=== PATIENT | male | born 1950 | race Hispanic/Latino ===

== ENCOUNTER 2017-08-29 13:59 | Outpatient (RCR) | payer OTHER | END 2017-08-31 | LOC: PT 13:59 | PROVIDERS: ATTEND Specialist | DX: M17.0 Bilateral primary osteoarthritis of knee (principal); M25.562 Pain in left knee; M25.561 Pain in right knee; R26.2 Difficulty in walking, not elsewhere classified | CPT/HCPCS: 97110 ×5; 97163; G8978; G8979 ==

== ENCOUNTER → 2018-09-25 | Outpatient (CLI) | payer OTHER ==
--- NOTE | 2018-09-25 18:23 | Diagnostic Imaging Report ---
EXAMINATION: Left Hip 2 views CLINICAL HISTORY:Left hip pain COMPARISON: KUB DISCUSSION: Exam limited by soft tissue attenuation from body habitus. The bones are well-mineralized. No acute, displaced fractures or dislocations. Mild degenerative changes in the left hip joint, similar to prior KUB. No gross soft tissue abnormalities. No osteolytic or osteoblastic lesions. IMPRESSION: 1. No acute abnormalities. 2. Mild degenerative changes in the left hip joint, similar to prior exam dated 02/11/2017 Signed by: Dr. Bebo Hernandez M.D. on 09/25/2018 6:20 PM
== END ==
LOC: RAD 16:50
PROVIDERS: ATTEND Family Medicine
DX: M25.552 Pain in left hip (principal)

== ENCOUNTER → 2019-08-20 | Outpatient (CLI) | payer MEDICARE ==
--- NOTE | 2019-08-20 14:26 | Diagnostic Imaging Report ---
EXAMINATION: CHEST 2 VIEWS INDICATION: Shortness of breath COMPARISON: None FINDINGS: LINES/TUBES:None LUNGS:The lungs are moderately inflated. Left basilar subsegmental atelectasis. No focal consolidation or pulmonary edema. PLEURA:No pleural effusion or pneumothorax. MEDIASTINUM:The cardiomediastinal silhouette appears normal in size and shape. BONES/SOFT TISSUES:No acute osseous injury. ABDOMEN:No free air under the diaphragm. IMPRESSION: Left basilar subsegmental atelectasis. No focal pneumonia or pulmonary edema. Signed by: Mercedes Mendoza MD on 08/20/2019 2:23 PM
== END ==
LOC: RAD 13:10
PROVIDERS: ATTEND Family Medicine
DX: I50.9 Heart failure, unspecified (principal)
CPT/HCPCS: 71046

== ENCOUNTER → 2020-11-06 | Outpatient (CLI) | payer MEDICARE | LOC: RAD 11:58 | PROVIDERS: ATTEND Internal Medicine Critical Care Medicine | DX: R06.00 Dyspnea, unspecified (principal) | CPT/HCPCS: 71046 ==

== ENCOUNTER 2021-07-11 11:11 | Inpatient (IN) | payer MEDICARE, OTHER ==
[~2021-07-11] VITALS: Ht 177.8 cm; Wt 165.1 kg
[2021-07-11 11:34] LABS: BASOPHILS % 0.2 % (0.0-1.0); EOSINOPHILS # (AUTO) 0.2 (0.0-0.4); EOSINOPHILS % 1.2 % (0.0-6.0); HEMATOCRIT 32.9 % (38.2-49.6); HEMOGLOBIN 9.4 g/dL (14.0-18.0); LYMPHOCYTES # (AUTO) 0.7 (1.0-3.2); LYMPHOCYTES % 5.6 % (18.0-39.1); MEAN CORPUSCULAR HEMOGLOBIN 28.1 pg (28-32); MEAN CORPUSCULAR HGB CONC 28.6 g/dL (31-35); MEAN CORPUSCULAR VOLUME 98.5 fL (81-99); MONOCYTES # (AUTO) 0.8 (0.2-0.8); MONOCYTES % 5.8 % (4.4-11.3); NEUTROPHILS # (AUTO) 11.2 (2.1-6.9); NEUTROPHILS % 86.1 % (38.7-80.0); PLATELET COUNT 253 x10e3/uL (140-360); RED BLOOD COUNT 3.34 x10e6/uL (4.3-5.7); RED CELL DISTRIBUTION WIDTH 13.3 % (11.7-14.4)
[2021-07-11 11:49] LABS: ANION GAP 17.4 mmol/L (8-16); CALCIUM 9.5 mg/dL (8.4-10.2); CREATININE, SERUM 3.29 mg/dL (0.72-1.25); POTASSIUM 5.4 mmol/L (3.5-5.1)
[2021-07-11 12:03] LABS: CLARITY,URINE SL CLOUDY (CLEAR); COLOR,URINE YELLOW (YELLOW)
[2021-07-11 12:04] LABS: KETONES,URINE TRACE (NEGATIVE); LEUKOCYTE ESTERASE ,URINE SMALL (NEGATIVE); NITRITE,URINE NEGATIVE (NEGATIVE); PROTEIN,URINE DIPSTICK >=300 (NEGATIVE)
[2021-07-11 12:05] LABS: BACTERIA,URINE RARE /HPF; EPITHELIAL CELLS,URINE FEW /LPF
[2021-07-11] MEDS ORDERED: SODIUM CHLORIDE 0.9% 1000ML 1,000 ML IV SCH (12:15)
[2021-07-11] MEDS: SODIUM CHLORIDE 0.9% 1000ML 1,000 ML IV SCH (13:55)
[2021-07-11 16:45] VITALS: BP 116/45
[2021-07-11] MEDS: CEFTRIAXONE 1 GM in SODIUM CHLORIDE 0.9% 50ML 50 ML IV SCH (17:00)
[2021-07-11] MEDS ORDERED: DEXAMETHASONE SOD PHOS 10 MG/1 ML VIAL IV SCH (17:00)
[2021-07-11 17:11] VITALS: BP_SYST 116; BP_SYST 52; BP_DIAS 42; BP_DIAS 45
[2021-07-11] MEDS ORDERED: LOSARTAN POTAS100 MG PO (17:40)
[2021-07-11] MEDS ORDERED: SPIRONOLACTONE25 MG PO (17:44)
[2021-07-11] MEDS ORDERED: ASPIRIN81 MG PO (17:44)
[2021-07-11] MEDS ORDERED: FUROSEMIDE40 MG PO (17:44)
[2021-07-11] MEDS ORDERED: FLOMAX0.4 MG PO (17:44)
[2021-07-11] MEDS ORDERED: SIMVASTATIN20 MG PO (17:44)
[2021-07-11] MEDS ORDERED: PANTOPRAZOLE SO40 MG PO (17:44)
[2021-07-11] MEDS ORDERED: HYDRALAZINE HCL25 MG PO (17:44)
[2021-07-11] MEDS ORDERED: CEFTRIAXONE 1 GM VIAL ONE (18:12)
[2021-07-11] MEDS ORDERED: SODIUM CHLORIDE 0.9% 250ML 250 ML ONE (18:12)
[2021-07-11] MEDS ORDERED: SODIUM CHLORIDE 0.9% 50ML 50 ML ONE (18:17)
[2021-07-11] MEDS ORDERED: METFORMIN HCL500 MG PO (18:29)
[2021-07-11] MEDS ORDERED: HUMULIN 70100 UNIT/1 SC (18:29)
[2021-07-11 18:46] VITALS: BP 116/45
[2021-07-11 20:00] VITALS: BP_SYST 108; BP_SYST 121; BP_DIAS 45; BP_DIAS 70
[2021-07-11 21:00] VITALS: BP 121/45
[2021-07-11] MEDS: INSULIN LISPRO 100 UNIT/1 ML 3ML VIAL SQ SCH (21:00)
[2021-07-11] MEDS: ENOXAPARIN 30 MG/0.3 ML SYR SC SCH (21:31)
[2021-07-12] VITALS (9 sets, daily range): BP systolic 100–148; BP diastolic 42–69
[2021-07-12 06:23] LABS: BASOPHILS % 0.2 % (0.0-1.0); HEMATOCRIT 31.1 % (38.2-49.6); LYMPHOCYTES # (AUTO) 0.6 (1.0-3.2); LYMPHOCYTES % 5.2 % (18.0-39.1); MEAN CORPUSCULAR HEMOGLOBIN 27.7 pg (28-32); MEAN CORPUSCULAR HGB CONC 28.9 g/dL (31-35); MEAN CORPUSCULAR VOLUME 95.7 fL (81-99); MONOCYTES # (AUTO) 0.3 (0.2-0.8); MONOCYTES % 2.4 % (4.4-11.3); NEUTROPHILS # (AUTO) 9.6 (2.1-6.9); NEUTROPHILS % 89.3 % (38.7-80.0); PLATELET COUNT 258 x10e3/uL (140-360); RED BLOOD COUNT 3.25 x10e6/uL (4.3-5.7); RED CELL DISTRIBUTION WIDTH 13.4 % (11.7-14.4)
[2021-07-12 06:53] LABS: ANION GAP 20.5 mmol/L (8-16); CREATININE, SERUM 4.24 mg/dL (0.72-1.25); POTASSIUM 5.5 mmol/L (3.5-5.1)
[2021-07-12 07:25] LABS: ALBUMIN 2.4 g/dL (3.5-5.0); BILIRUBIN,DIRECT 2.7 mg/dL (0.0-0.5)
[2021-07-12] MEDS: INSULIN LISPRO 100 UNIT/1 ML 3ML VIAL SQ SCH ×4 (07:30→21:17)
[2021-07-12] MEDS ORDERED: SOD POLYSTYRENE SULFONATE SUSP 15 GM/60 ML BTL PO ONE (07:45)
[2021-07-12] MEDS ORDERED: CEFTRIAXONE 1 GM VIAL ONE (08:14)
[2021-07-12] MEDS ORDERED: SODIUM CHLORIDE 0.9% 50ML 50 ML ONE (08:19)
[2021-07-12] MEDS: ENOXAPARIN 30 MG/0.3 ML SYR SC SCH ×2 (08:47→20:56)
[2021-07-12 11:14] LABS: ABG PH 7.22 (7.35-7.45)
[2021-07-12 11:15] LABS: ABG HCO3 32 mmol/L (22-26); ABG PCO2 77 mmHg (35-45); ABG PO2 74 mmHg (80-105); ABG TCO2 34
[2021-07-12] MEDS ORDERED: FUROSEMIDE INJ 10 MG/ML 4 ML VIAL IV NR (11:45)
[2021-07-12] MEDS: SODIUM CHLORIDE 0.9% 1000ML 1,000 ML IV SCH ×2 (11:58→21:33)
[2021-07-12] MEDS: IPRATROPIUM/ALBUTEROL SULFATE 4 GM INH INH SCH ×2 (13:00→14:40)
[2021-07-12] MEDS: CEFTRIAXONE 1 GM in SODIUM CHLORIDE 0.9% 50ML 50 ML IV SCH (18:01)
[2021-07-13] VITALS (11 sets, daily range): BP systolic 105–139; BP diastolic 46–82
[2021-07-13 05:48] LABS: BASOPHILS # (AUTO) 0.1 (0.0-0.1); BASOPHILS % 0.4 % (0.0-1.0); HEMATOCRIT 29.7 % (38.2-49.6); HEMOGLOBIN 8.9 g/dL (14.0-18.0); LYMPHOCYTES # (AUTO) 0.8 (1.0-3.2); LYMPHOCYTES % 6.4 % (18.0-39.1); MEAN CORPUSCULAR HEMOGLOBIN 28.2 pg (28-32); MONOCYTES # (AUTO) 0.6 (0.2-0.8); MONOCYTES % 4.6 % (4.4-11.3); NEUTROPHILS # (AUTO) 10.3 (2.1-6.9); NEUTROPHILS % 84.5 % (38.7-80.0); PLATELET COUNT 270 x10e3/uL (140-360); RED BLOOD COUNT 3.16 x10e6/uL (4.3-5.7); RED CELL DISTRIBUTION WIDTH 13.6 % (11.7-14.4)
[2021-07-13 06:17] LABS: INR 1.05; PROTHROMBIN TIME 14.5 seconds (11.9-14.5)
[2021-07-13 06:33] LABS: ALBUMIN 2.4 g/dL (3.5-5.0); ALBUMIN/GLOBULIN RATIO 0.5 (0.8-2.0); ANION GAP 21.8 mmol/L (8-16); CALCIUM 8.3 mg/dL (8.4-10.2); CREATININE, SERUM 5.33 mg/dL (0.72-1.25); POTASSIUM 5.8 mmol/L (3.5-5.1)
[2021-07-13] MEDS: INSULIN LISPRO 100 UNIT/1 ML 3ML VIAL SQ SCH ×4 (07:30→21:00)
[2021-07-13] MEDS ORDERED: DEXTROSE 50% SYRINGE 50 ML IV STA (08:04)
[2021-07-13] MEDS ORDERED: INSULIN REGULAR, HUMAN 100 UNIT/1 ML IV ONE (08:30)
[2021-07-13] MEDS ORDERED: CALCIUM GLUCONATE 10% INJ 4.65 MEQ in SODIUM CHLORIDE 0.9% 50ML 50 ML IV ONE (08:30)
[2021-07-13] MEDS ORDERED: DEXTROSE 50% SYRINGE 50 ML IV ONE (08:35)
[2021-07-13] MEDS: ENOXAPARIN 30 MG/0.3 ML SYR SC SCH (09:00)
[2021-07-13] MEDS: DEXAMETHASONE 4 MG TAB PO SCH (09:14)
[2021-07-13] MEDS: ASPIRIN 81 MG CHEW TAB PO SCH (09:17)
[2021-07-13] MEDS: TAMSULOSIN HCL 0.4 MG CAP PO SCH (09:17)
[2021-07-13] MEDS: PANTOPRAZOLE SOD 40 MG TABEC PO SCH (09:17)
[2021-07-13 09:29] LABS: ABG PH 7.21 (7.35-7.45)
[2021-07-13 09:30] LABS: ABG HCO3 32 mmol/L (22-26); ABG PCO2 77 mmHg (35-45); ABG TCO2 34
[2021-07-13 09:31] LABS: ABG PO2 74 mmHg (80-105)
[2021-07-13] MEDS ORDERED: LIDOCAINE HCL 1% LOCAL INJ 20 ML VIAL ONE (13:11)
[2021-07-13] MEDS ORDERED: HEPARIN SOD (PORCINE) 1000 UNIT/ML SDV ONE (13:52)
[2021-07-13] MEDS ORDERED: SODIUM CHLORIDE 0.9% 250ML 500 ML IV PRN (14:15)
[2021-07-13] MEDS ORDERED: SODIUM CHLORIDE 0.9% 1000ML 2,000 ML IV PRN (14:15)
[2021-07-13] MEDS ORDERED: ALBUMIN 25% 12.5GM 0.25 GM/ML BTL IV PRN (14:15)
[2021-07-13] MEDS ORDERED: MANNITOL 25% 12.5GM/50 ML VIAL IV PRN (14:15)
[2021-07-13] MEDS ORDERED: HEPARIN SOD (PORCINE) 1000 UNIT/ML SDV IV PRN (14:15)
[2021-07-13] MEDS ORDERED: CEFEPIME 1 GM in SODIUM CHLORIDE 0.9% 50ML 50 ML IV SCH (16:00)
[2021-07-13] MEDS: PIPERACILLIN/TAZOBACTAM 3.375 GM in SODIUM CHLORIDE 0.9% 50ML 50 ML IV SCH (21:00)
[2021-07-14] VITALS (10 sets, daily range): BP systolic 105–132; BP diastolic 47–70
[2021-07-14 05:46] LABS: BASOPHILS % 0.2 % (0.0-1.0); HEMATOCRIT 28.8 % (38.2-49.6); HEMOGLOBIN 8.9 g/dL (14.0-18.0); LYMPHOCYTES # (AUTO) 0.7 (1.0-3.2); LYMPHOCYTES % 5.9 % (18.0-39.1); MEAN CORPUSCULAR HEMOGLOBIN 27.9 pg (28-32); MEAN CORPUSCULAR HGB CONC 30.9 g/dL (31-35); MEAN CORPUSCULAR VOLUME 90.3 fL (81-99); MONOCYTES # (AUTO) 0.8 (0.2-0.8); MONOCYTES % 6.6 % (4.4-11.3); NEUTROPHILS # (AUTO) 10.2 (2.1-6.9); NEUTROPHILS % 82.3 % (38.7-80.0); PLATELET COUNT 286 x10e3/uL (140-360); RED BLOOD COUNT 3.19 x10e6/uL (4.3-5.7); RED CELL DISTRIBUTION WIDTH 13.6 % (11.7-14.4)
[2021-07-14 06:03] LABS: INR 1.06; PROTHROMBIN TIME 14.6 seconds (11.9-14.5)
[2021-07-14 06:27] LABS: ALBUMIN 2.6 g/dL (3.5-5.0); ALBUMIN/GLOBULIN RATIO 0.6 (0.8-2.0); ANION GAP 17.7 mmol/L (8-16); CREATININE, SERUM 5.52 mg/dL (0.72-1.25); POTASSIUM 5.7 mmol/L (3.5-5.1)
[2021-07-14] MEDS: IPRATROPIUM/ALBUTEROL SULFATE 4 GM INH INH SCH ×3 (07:00→19:50)
[2021-07-14] MEDS: INSULIN LISPRO 100 UNIT/1 ML 3ML VIAL SQ SCH ×4 (07:30→21:00)
[2021-07-14] MEDS: PANTOPRAZOLE SOD 40 MG TABEC PO SCH (09:30)
[2021-07-14] MEDS: ENOXAPARIN 30 MG/0.3 ML SYR SC SCH (09:30)
[2021-07-14] MEDS: PIPERACILLIN/TAZOBACTAM 3.375 GM in SODIUM CHLORIDE 0.9% 50ML 50 ML IV SCH ×2 (09:30→21:47)
[2021-07-14] MEDS: ASPIRIN 81 MG CHEW TAB PO SCH (09:30)
[2021-07-14] MEDS: DEXAMETHASONE 4 MG TAB PO SCH (09:30)
[2021-07-14] MEDS: TAMSULOSIN HCL 0.4 MG CAP PO SCH (09:30)
[2021-07-14] MEDS ORDERED: HEPARIN SOD (PORCINE) 1000 UNIT/ML SDV IV PRN (10:45)
[2021-07-14 18:40] LABS: TOTAL PROTEIN 24HR, URINE 76.7 mg/24hr (50-100); TOTAL PROTEIN, URINE 383.8 mg/dL (1-14)
[2021-07-14] MEDS: HEPARIN SOD (PORCINE) 5,000 UNIT/ML VIAL SC SCH (22:00)
[2021-07-15] VITALS (8 sets, daily range): BP systolic 91–138; BP diastolic 36–78
[2021-07-15] MEDS: IPRATROPIUM/ALBUTEROL SULFATE 4 GM INH INH SCH ×3 (02:00→13:00)
[2021-07-15] MEDS: HEPARIN SOD (PORCINE) 5,000 UNIT/ML VIAL SC SCH ×3 (06:15→22:30)
[2021-07-15 06:34] LABS: BASOPHILS # (AUTO) 0.1 (0.0-0.1); BASOPHILS % 0.4 % (0.0-1.0); HEMATOCRIT 28.1 % (38.2-49.6); HEMOGLOBIN 8.5 g/dL (14.0-18.0); LYMPHOCYTES # (AUTO) 1.2 (1.0-3.2); LYMPHOCYTES % 8.5 % (18.0-39.1); MEAN CORPUSCULAR HGB CONC 30.2 g/dL (31-35); MEAN CORPUSCULAR VOLUME 92.4 fL (81-99); MONOCYTES # (AUTO) 1.1 (0.2-0.8); MONOCYTES % 7.6 % (4.4-11.3); NEUTROPHILS # (AUTO) 10.8 (2.1-6.9); NEUTROPHILS % 76.4 % (38.7-80.0); PLATELET COUNT 268 x10e3/uL (140-360); RED BLOOD COUNT 3.04 x10e6/uL (4.3-5.7); RED CELL DISTRIBUTION WIDTH 13.9 % (11.7-14.4)
[2021-07-15 06:45] LABS: ALBUMIN 2.6 g/dL (3.5-5.0); ALBUMIN/GLOBULIN RATIO 0.6 (0.8-2.0); CREATININE, SERUM 4.85 mg/dL (0.72-1.25)
[2021-07-15] MEDS: INSULIN LISPRO 100 UNIT/1 ML 3ML VIAL SQ SCH ×4 (07:30→22:29)
[2021-07-15] MEDS ORDERED: HEPARIN SOD (PORCINE) 1000 UNIT/ML SDV IV PRN (08:00)
[2021-07-15 09:06] LABS: LYMPHOCYTES % (MANUAL) 11 % (19-48); MONOCYTES % (MANUAL) 4 % (3.4-9.0); MYELOCYTES % (MANUAL) 4 % (0-0); NEUTROPHILS % (MANUAL) 81 % (40-74); PLATELET ESTIMATE ADEQUATE; PLATELET MORPHOLOGY COMMENT NORMAL; RBC MORPHOLOGY COMMENT NORMAL
[2021-07-15] MEDS: PANTOPRAZOLE SOD 40 MG TABEC PO SCH (10:24)
[2021-07-15] MEDS: TAMSULOSIN HCL 0.4 MG CAP PO SCH (10:24)
[2021-07-15] MEDS: ASPIRIN 81 MG CHEW TAB PO SCH (10:24)
[2021-07-15] MEDS: DEXAMETHASONE 4 MG TAB PO SCH (10:24)
[2021-07-15] MEDS ORDERED: SODIUM CHLORIDE 0.9% 100 ML ONE (11:31)
[2021-07-15] MEDS: PIPERACILLIN/TAZOBACTAM 3.375 GM in SODIUM CHLORIDE 0.9% 50ML 50 ML IV SCH ×2 (12:19→22:28)
[2021-07-16] VITALS (9 sets, daily range): BP systolic 109–141; BP diastolic 42–73
[2021-07-16] MEDS: IPRATROPIUM/ALBUTEROL SULFATE 4 GM INH INH SCH ×7 (00:40→18:46)
[2021-07-16] MEDS: HEPARIN SOD (PORCINE) 5,000 UNIT/ML VIAL SC SCH ×3 (05:30→21:25)
[2021-07-16] MEDS: INSULIN LISPRO 100 UNIT/1 ML 3ML VIAL SQ SCH ×4 (07:30→21:24)
[2021-07-16] MEDS: PANTOPRAZOLE SOD 40 MG TABEC PO SCH (08:30)
[2021-07-16] MEDS: DEXAMETHASONE 4 MG TAB PO SCH (08:30)
[2021-07-16 08:47] LABS: BASOPHILS # (AUTO) 0.1 (0.0-0.1); BASOPHILS % 0.3 % (0.0-1.0); EOSINOPHILS % 0.1 % (0.0-6.0); HEMATOCRIT 27.2 % (38.2-49.6); HEMOGLOBIN 8.4 g/dL (14.0-18.0); LYMPHOCYTES # (AUTO) 1.6 (1.0-3.2); LYMPHOCYTES % 9.6 % (18.0-39.1); MEAN CORPUSCULAR HEMOGLOBIN 28.3 pg (28-32); MEAN CORPUSCULAR HGB CONC 30.9 g/dL (31-35); MEAN CORPUSCULAR VOLUME 91.6 fL (81-99); MONOCYTES # (AUTO) 1.5 (0.2-0.8); MONOCYTES % 9.2 % (4.4-11.3); NEUTROPHILS # (AUTO) 12.2 (2.1-6.9); NEUTROPHILS % 72.6 % (38.7-80.0); PLATELET COUNT 230 x10e3/uL (140-360); RED BLOOD COUNT 2.97 x10e6/uL (4.3-5.7); RED CELL DISTRIBUTION WIDTH 13.7 % (11.7-14.4)
[2021-07-16] MEDS: PIPERACILLIN/TAZOBACTAM 3.375 GM in SODIUM CHLORIDE 0.9% 50ML 50 ML IV SCH ×2 (09:56→21:23)
[2021-07-16] MEDS: TAMSULOSIN HCL 0.4 MG CAP PO SCH (09:56)
[2021-07-16] MEDS: ASPIRIN 81 MG CHEW TAB PO SCH (09:56)
[2021-07-16] MEDS ORDERED: SALINE 0.65% NAS SOLN 1 SPRAY BTL PRN (16:00)
[2021-07-16] MEDS: AZITHROMYCIN 250 MG TAB PO SCH (17:56)
[2021-07-17] VITALS (8 sets, daily range): BP systolic 96–128; BP diastolic 37–81
[2021-07-17 07:08] LABS: ALBUMIN 2.5 g/dL (3.5-5.0); ALBUMIN/GLOBULIN RATIO 0.6 (0.8-2.0); ANION GAP 15.7 mmol/L (8-16); CALCIUM 7.9 mg/dL (8.4-10.2); CREATININE, SERUM 5.3 mg/dL (0.72-1.25); POTASSIUM 4.7 mmol/L (3.5-5.1)
[2021-07-17] MEDS: INSULIN LISPRO 100 UNIT/1 ML 3ML VIAL SQ SCH ×4 (07:30→21:28)
[2021-07-17] MEDS ORDERED: SODIUM CHLORIDE 0.9% 1000ML 1,000 ML ONE (07:38)
[2021-07-17] MEDS: TAMSULOSIN HCL 0.4 MG CAP PO SCH (09:17)
[2021-07-17] MEDS: PANTOPRAZOLE SOD 40 MG TABEC PO SCH (09:17)
[2021-07-17] MEDS: DEXAMETHASONE 4 MG TAB PO SCH (09:17)
[2021-07-17] MEDS: PIPERACILLIN/TAZOBACTAM 3.375 GM in SODIUM CHLORIDE 0.9% 50ML 50 ML IV SCH ×2 (12:33→21:27)
[2021-07-17] MEDS: SERTRALINE HCL 50 MG TAB PO SCH (12:33)
[2021-07-17] MEDS: IPRATROPIUM/ALBUTEROL SULFATE 4 GM INH INH SCH ×3 (12:58→20:30)
[2021-07-17] MEDS ORDERED: HEPARIN SOD (PORCINE) 1000 UNIT/ML SDV ONE (14:18)
[2021-07-17] MEDS ORDERED: MIDAZOLAM HCL 2 MG/2 ML VIAL ONE (14:18)
[2021-07-17] MEDS ORDERED: FENTANYL CITRATE/PF 100MCG/2 ML INJ ONE (14:18)
[2021-07-17] MEDS ORDERED: SODIUM CHLORIDE 0.9% 250ML 250 ML ONE (14:29)
[2021-07-17] MEDS ORDERED: LIDOCAINE HCL 1% LOCAL INJ 20 ML VIAL ONE (14:29)
[2021-07-17] MEDS: HEPARIN SOD (PORCINE) 5,000 UNIT/ML VIAL SC SCH ×2 (16:44→21:28)
[2021-07-17] MEDS: AZITHROMYCIN 250 MG TAB PO SCH (16:59)
[2021-07-17] MEDS: ASPIRIN 81 MG CHEW TAB PO SCH (16:59)
[2021-07-18] VITALS (7 sets, daily range): BP systolic 100–127; BP diastolic 32–48
[2021-07-18] MEDS: HEPARIN SOD (PORCINE) 5,000 UNIT/ML VIAL SC SCH ×3 (05:43→21:22)
[2021-07-18 06:50] LABS: BASOPHILS # (AUTO) 0.1 (0.0-0.1); BASOPHILS % 0.4 % (0.0-1.0); EOSINOPHILS % 0.1 % (0.0-6.0); LYMPHOCYTES # (AUTO) 1.3 (1.0-3.2); LYMPHOCYTES % 7.9 % (18.0-39.1); MEAN CORPUSCULAR HEMOGLOBIN 27.7 pg (28-32); MEAN CORPUSCULAR HGB CONC 29.6 g/dL (31-35); MEAN CORPUSCULAR VOLUME 93.4 fL (81-99); MONOCYTES # (AUTO) 1.1 (0.2-0.8); MONOCYTES % 6.3 % (4.4-11.3); NEUTROPHILS # (AUTO) 12.9 (2.1-6.9); NEUTROPHILS % 77.7 % (38.7-80.0); PLATELET COUNT 204 x10e3/uL (140-360); RED BLOOD COUNT 2.89 x10e6/uL (4.3-5.7); RED CELL DISTRIBUTION WIDTH 13.6 % (11.7-14.4)
[2021-07-18] MEDS: IPRATROPIUM/ALBUTEROL SULFATE 4 GM INH INH SCH ×2 (08:12→19:25)
[2021-07-18] MEDS: INSULIN LISPRO 100 UNIT/1 ML 3ML VIAL SQ SCH ×4 (08:40→21:40)
[2021-07-18] MEDS: SERTRALINE HCL 50 MG TAB PO SCH (10:00)
[2021-07-18] MEDS: PIPERACILLIN/TAZOBACTAM 3.375 GM in SODIUM CHLORIDE 0.9% 50ML 50 ML IV SCH ×2 (10:00→21:21)
[2021-07-18] MEDS: DEXAMETHASONE 4 MG TAB PO SCH (10:00)
[2021-07-18] MEDS: PANTOPRAZOLE SOD 40 MG TABEC PO SCH (10:00)
[2021-07-18] MEDS: TAMSULOSIN HCL 0.4 MG CAP PO SCH (10:00)
[2021-07-18] MEDS: ASPIRIN 81 MG CHEW TAB PO SCH (10:00)
[2021-07-18 11:55] LABS: LYMPHOCYTES % (MANUAL) 12 % (19-48); MONOCYTES % (MANUAL) 5 % (3.4-9.0); NEUTROPHILS % (MANUAL) 83 % (40-74); PLATELET ESTIMATE ADEQUATE; PLATELET MORPHOLOGY COMMENT NORMAL; RBC MORPHOLOGY COMMENT NORMAL
[2021-07-18] MEDS: AZITHROMYCIN 250 MG TAB PO SCH (17:00)
[2021-07-18 21:11] LABS: CREATINE KINASE MB 1.2 ng/mL (0-5.0)
[2021-07-19] MEDS: IPRATROPIUM/ALBUTEROL SULFATE 4 GM INH INH SCH ×4 (01:00→19:00)
[2021-07-19] MEDS: HEPARIN SOD (PORCINE) 5,000 UNIT/ML VIAL SC SCH ×2 (05:41→13:36)
[2021-07-19 06:44] VITALS: BP 104/37
[2021-07-19 07:53] VITALS: BP 110/42
[2021-07-19 08:08] LABS: BASOPHILS # (AUTO) 0.1 (0.0-0.1); BASOPHILS % 0.3 % (0.0-1.0); EOSINOPHILS % 0.1 % (0.0-6.0); HEMATOCRIT 26.5 % (38.2-49.6); HEMOGLOBIN 8.2 g/dL (14.0-18.0); LYMPHOCYTES # (AUTO) 1.1 (1.0-3.2); LYMPHOCYTES % 5.7 % (18.0-39.1); MEAN CORPUSCULAR HEMOGLOBIN 27.9 pg (28-32); MEAN CORPUSCULAR HGB CONC 30.9 g/dL (31-35); MEAN CORPUSCULAR VOLUME 90.1 fL (81-99); MONOCYTES # (AUTO) 0.8 (0.2-0.8); NEUTROPHILS # (AUTO) 15.7 (2.1-6.9); NEUTROPHILS % 82.1 % (38.7-80.0); PLATELET COUNT 234 x10e3/uL (140-360); RED BLOOD COUNT 2.94 x10e6/uL (4.3-5.7); RED CELL DISTRIBUTION WIDTH 13.9 % (11.7-14.4)
[2021-07-19] MEDS: INSULIN LISPRO 100 UNIT/1 ML 3ML VIAL SQ SCH ×4 (08:30→21:40)
[2021-07-19 08:31] LABS: ALBUMIN 2.4 g/dL (3.5-5.0); ALBUMIN/GLOBULIN RATIO 0.5 (0.8-2.0); ANION GAP 15.9 mmol/L (8-16); CALCIUM 8.3 mg/dL (8.4-10.2); CREATININE, SERUM 5.52 mg/dL (0.72-1.25); POTASSIUM 4.9 mmol/L (3.5-5.1)
[2021-07-19 09:37] LABS: EOSINOPHILS % (MANUAL) 2 % (0-7); HYPOCHROMASIA MARKED; LYMPHOCYTES % (MANUAL) 11 % (19-48); MONOCYTES % (MANUAL) 5 % (3.4-9.0); MYELOCYTES % (MANUAL) 4 % (0-0); NEUTROPHILS % (MANUAL) 76 % (40-74); PLATELET ESTIMATE ADEQUATE; PLATELET MORPHOLOGY COMMENT FEW LARGE; RBC MORPHOLOGY COMMENT ABNORMAL
[2021-07-19] MEDS: ASPIRIN 81 MG CHEW TAB PO SCH (10:30)
[2021-07-19] MEDS: SERTRALINE HCL 50 MG TAB PO SCH (10:30)
[2021-07-19] MEDS: DEXAMETHASONE 4 MG TAB PO SCH (10:30)
[2021-07-19] MEDS: TAMSULOSIN HCL 0.4 MG CAP PO SCH (10:30)
[2021-07-19] MEDS: PANTOPRAZOLE SOD 40 MG TABEC PO SCH (10:30)
[2021-07-19] MEDS: PIPERACILLIN/TAZOBACTAM 3.375 GM in SODIUM CHLORIDE 0.9% 50ML 50 ML IV SCH (10:30)
[2021-07-19 11:56] VITALS: BP 99/37
[2021-07-19] MEDS ORDERED: ALBUMIN 25% 12.5GM 0.25 GM/ML BTL IV ONE (12:45)
[2021-07-19] MEDS ORDERED: SODIUM CHLORIDE 0.9% 250ML 250 ML ONE (13:36)
[2021-07-19 13:46] LABS: ABG HCO3 27 mmol/L (22-26); ABG PCO2 74 mmHg (35-45); ABG PH 7.19 (7.35-7.45); ABG PO2 134 mmHg (80-105)
[2021-07-19 13:47] LABS: ABG TCO2 29
[2021-07-19 15:54] VITALS: BP 100/47
[2021-07-19] MEDS: AZITHROMYCIN 250 MG TAB PO SCH (18:00)
[2021-07-19 21:09] VITALS: BP 139/45
[2021-07-19] MEDS: MEROPENEM 500 MG in SODIUM CHLORIDE 0.9% 50ML 50 ML IV SCH (21:39)
[2021-07-19 21:43] VITALS: BP 139/47
[2021-07-20] VITALS (9 sets, daily range): BP systolic 94–136; BP diastolic 41–69
[2021-07-20] MEDS: IPRATROPIUM/ALBUTEROL SULFATE 4 GM INH INH SCH ×5 (01:00→19:20)
[2021-07-20 05:19] LABS: BASOPHILS # (AUTO) 0.1 (0.0-0.1); BASOPHILS % 0.4 % (0.0-1.0); HEMATOCRIT 25.2 % (38.2-49.6); LYMPHOCYTES # (AUTO) 1.2 (1.0-3.2); LYMPHOCYTES % 5.7 % (18.0-39.1); MEAN CORPUSCULAR HEMOGLOBIN 27.9 pg (28-32); MEAN CORPUSCULAR HGB CONC 31.7 g/dL (31-35); MEAN CORPUSCULAR VOLUME 87.8 fL (81-99); MONOCYTES # (AUTO) 0.9 (0.2-0.8); MONOCYTES % 4.1 % (4.4-11.3); NEUTROPHILS # (AUTO) 17.3 (2.1-6.9); NEUTROPHILS % 81.5 % (38.7-80.0); PLATELET COUNT 270 x10e3/uL (140-360); RED BLOOD COUNT 2.87 x10e6/uL (4.3-5.7); RED CELL DISTRIBUTION WIDTH 13.9 % (11.7-14.4)
[2021-07-20 05:35] LABS: ALBUMIN 2.7 g/dL (3.5-5.0); ALBUMIN/GLOBULIN RATIO 0.6 (0.8-2.0); CALCIUM 8.3 mg/dL (8.4-10.2); CREATININE, SERUM 6.54 mg/dL (0.72-1.25)
[2021-07-20] MEDS: PANTOPRAZOLE SOD 40 MG TABEC PO SCH (07:30)
[2021-07-20] MEDS: INSULIN LISPRO 100 UNIT/1 ML 3ML VIAL SQ SCH ×4 (07:30→21:00)
[2021-07-20] MEDS: ASPIRIN 81 MG CHEW TAB PO SCH (07:36)
[2021-07-20] MEDS: TAMSULOSIN HCL 0.4 MG CAP PO SCH (07:37)
[2021-07-20] MEDS: SERTRALINE HCL 50 MG TAB PO SCH (07:37)
[2021-07-20] MEDS: MEROPENEM 500 MG in SODIUM CHLORIDE 0.9% 50ML 50 ML IV SCH ×2 (08:00→20:00)
[2021-07-20 08:27] LABS: BAND NEUTROPHILS % (MANUAL) 1 %; LYMPHOCYTES % (MANUAL) 11 % (19-48); METAMYELOCYTES % (MANUAL) 1 % (0-0); MONOCYTES % (MANUAL) 9 % (3.4-9.0); NEUTROPHILS % (MANUAL) 78 % (40-74); PLATELET ESTIMATE ADEQUATE; PLATELET MORPHOLOGY COMMENT NORMAL; RBC MORPHOLOGY COMMENT NORMAL
[2021-07-20] MEDS ORDERED: LIDOCAINE HCL 1% LOCAL INJ 20 ML VIAL ONE (13:25)
[2021-07-20] MEDS ORDERED: FENTANYL CITRATE/PF 100MCG/2 ML INJ ONE (14:21)
[2021-07-20] MEDS ORDERED: Morphine 4mg Syringe 4 MG/ML INJ IV ONE (15:30)
[2021-07-21] VITALS (12 sets, daily range): BP systolic 111–145; BP diastolic 40–98
[2021-07-21] MEDS: IPRATROPIUM/ALBUTEROL SULFATE 4 GM INH INH SCH ×5 (01:20→13:55)
[2021-07-21 05:03] LABS: BASOPHILS % 0.2 % (0.0-1.0); EOSINOPHILS % 0.1 % (0.0-6.0); HEMATOCRIT 23.6 % (38.2-49.6); HEMOGLOBIN 7.6 g/dL (14.0-18.0); LYMPHOCYTES # (AUTO) 1.3 (1.0-3.2); LYMPHOCYTES % 6.8 % (18.0-39.1); MEAN CORPUSCULAR HEMOGLOBIN 27.8 pg (28-32); MEAN CORPUSCULAR HGB CONC 32.2 g/dL (31-35); MEAN CORPUSCULAR VOLUME 86.4 fL (81-99); MONOCYTES # (AUTO) 1.3 (0.2-0.8); MONOCYTES % 6.5 % (4.4-11.3); NEUTROPHILS # (AUTO) 15.5 (2.1-6.9); NEUTROPHILS % 80.3 % (38.7-80.0); PLATELET COUNT 295 x10e3/uL (140-360); RED BLOOD COUNT 2.73 x10e6/uL (4.3-5.7); RED CELL DISTRIBUTION WIDTH 14.4 % (11.7-14.4)
[2021-07-21] MEDS: HYDROCODONE/APAP 7.5MG-325MG 1 EA TAB PO PRN ×5 (05:18→22:05)
[2021-07-21 05:45] LABS: ALBUMIN 2.9 g/dL (3.5-5.0); ALBUMIN/GLOBULIN RATIO 0.7 (0.8-2.0); ANION GAP 19.7 mmol/L (8-16); CALCIUM 8.3 mg/dL (8.4-10.2); CREATININE, SERUM 4.57 mg/dL (0.72-1.25); POTASSIUM 4.7 mmol/L (3.5-5.1)
[2021-07-21] MEDS: PANTOPRAZOLE SOD 40 MG TABEC PO SCH (07:10)
[2021-07-21] MEDS: INSULIN LISPRO 100 UNIT/1 ML 3ML VIAL SQ SCH ×4 (07:10→21:00)
[2021-07-21] MEDS: SERTRALINE HCL 50 MG TAB PO SCH (07:11)
[2021-07-21] MEDS: ASPIRIN 81 MG CHEW TAB PO SCH (07:11)
[2021-07-21] MEDS: TAMSULOSIN HCL 0.4 MG CAP PO SCH (07:11)
[2021-07-21] MEDS: MEROPENEM 500 MG in SODIUM CHLORIDE 0.9% 50ML 50 ML IV SCH ×2 (07:51→20:36)
[2021-07-22] VITALS (7 sets, daily range): BP systolic 103–146; BP diastolic 44–59
[2021-07-22] MEDS: IPRATROPIUM/ALBUTEROL SULFATE 4 GM INH INH SCH ×4 (04:11→19:11)
[2021-07-22 07:28] LABS: BASOPHILS # (AUTO) 0.1 (0.0-0.1); BASOPHILS % 0.3 % (0.0-1.0); EOSINOPHILS % 0.1 % (0.0-6.0); HEMATOCRIT 24.9 % (38.2-49.6); HEMOGLOBIN 7.4 g/dL (14.0-18.0); LYMPHOCYTES # (AUTO) 2.2 (1.0-3.2); LYMPHOCYTES % 9.2 % (18.0-39.1); MEAN CORPUSCULAR HEMOGLOBIN 27.5 pg (28-32); MEAN CORPUSCULAR HGB CONC 29.7 g/dL (31-35); MEAN CORPUSCULAR VOLUME 92.6 fL (81-99); MONOCYTES % 8.3 % (4.4-11.3); NEUTROPHILS # (AUTO) 18.5 (2.1-6.9); PLATELET COUNT 322 x10e3/uL (140-360); RED BLOOD COUNT 2.69 x10e6/uL (4.3-5.7); RED CELL DISTRIBUTION WIDTH 14.9 % (11.7-14.4)
[2021-07-22] MEDS: INSULIN LISPRO 100 UNIT/1 ML 3ML VIAL SQ SCH ×4 (07:30→20:23)
[2021-07-22] MEDS: PANTOPRAZOLE SOD 40 MG TABEC PO SCH (07:30)
[2021-07-22 07:53] LABS: ALBUMIN 2.9 g/dL (3.5-5.0); ALBUMIN/GLOBULIN RATIO 0.7 (0.8-2.0); CALCIUM 8.4 mg/dL (8.4-10.2); CREATININE, SERUM 6.01 mg/dL (0.72-1.25)
[2021-07-22] MEDS: MEROPENEM 500 MG in SODIUM CHLORIDE 0.9% 50ML 50 ML IV SCH ×2 (09:27→20:35)
[2021-07-22] MEDS: ASPIRIN 81 MG CHEW TAB PO SCH (09:27)
[2021-07-22] MEDS: TAMSULOSIN HCL 0.4 MG CAP PO SCH (09:27)
[2021-07-22] MEDS: SERTRALINE HCL 50 MG TAB PO SCH (09:27)
[2021-07-22] MEDS ORDERED: DEXTROSE 50% SYRINGE 50 ML IV PRN (13:45)
[2021-07-22] MEDS ORDERED: HEPARIN SOD (PORCINE) 1000 UNIT/ML SDV ONE (13:50)
[2021-07-22] MEDS ORDERED: HEPARIN SOD (PORCINE) 1000 UNIT/ML SDV IV PRN (14:00)
[2021-07-22] MEDS ORDERED: HEPARIN SOD (PORCINE) 1000 UNIT/ML 10ML MDV IM SCH (14:00)
[2021-07-22] MEDS: HYDROCODONE/APAP 7.5MG-325MG 1 EA TAB PO PRN (20:35)
[2021-07-22] MEDS: HEPARIN SOD (PORCINE) 5,000 UNIT/ML VIAL SC SCH (22:55)
[2021-07-23] VITALS (9 sets, daily range): BP systolic 107–126; BP diastolic 40–58
[2021-07-23] MEDS: IPRATROPIUM/ALBUTEROL SULFATE 4 GM INH INH SCH ×4 (01:07→19:05)
[2021-07-23] MEDS: HEPARIN SOD (PORCINE) 5,000 UNIT/ML VIAL SC SCH ×3 (06:50→22:38)
[2021-07-23] MEDS: INSULIN LISPRO 100 UNIT/1 ML 3ML VIAL SQ SCH ×4 (07:30→21:00)
[2021-07-23] MEDS: PANTOPRAZOLE SOD 40 MG TABEC PO SCH (07:30)
[2021-07-23] MEDS: TAMSULOSIN HCL 0.4 MG CAP PO SCH (09:34)
[2021-07-23] MEDS: ASPIRIN 81 MG CHEW TAB PO SCH (09:34)
[2021-07-23] MEDS: SERTRALINE HCL 50 MG TAB PO SCH (09:34)
[2021-07-23] MEDS: MEROPENEM 500 MG in SODIUM CHLORIDE 0.9% 50ML 50 ML IV SCH ×2 (09:44→22:39)
[2021-07-23] MEDS ORDERED: SODIUM CHLORIDE 0.9% 250ML 250 ML IV ONE (12:50)
[2021-07-23] MEDS: HYDROCODONE/APAP 7.5MG-325MG 1 EA TAB PO PRN ×2 (14:31→22:50)
[2021-07-24] VITALS (11 sets, daily range): BP systolic 98–131; BP diastolic 36–75
[2021-07-24] MEDS: IPRATROPIUM/ALBUTEROL SULFATE 4 GM INH INH SCH ×4 (00:02→19:25)
[2021-07-24] MEDS: HEPARIN SOD (PORCINE) 5,000 UNIT/ML VIAL SC SCH ×3 (05:25→22:00)
[2021-07-24] MEDS: HYDROCODONE/APAP 7.5MG-325MG 1 EA TAB PO PRN ×2 (05:25→20:00)
[2021-07-24 06:22] LABS: BASOPHILS % 0.2 % (0.0-1.0); EOSINOPHILS # (AUTO) 0.1 (0.0-0.4); EOSINOPHILS % 0.6 % (0.0-6.0); HEMATOCRIT 24.2 % (38.2-49.6); HEMOGLOBIN 7.1 g/dL (14.0-18.0); LYMPHOCYTES # (AUTO) 1.6 (1.0-3.2); LYMPHOCYTES % 8.3 % (18.0-39.1); MEAN CORPUSCULAR HEMOGLOBIN 28.2 pg (28-32); MEAN CORPUSCULAR HGB CONC 29.3 g/dL (31-35); MONOCYTES # (AUTO) 1.4 (0.2-0.8); MONOCYTES % 7.4 % (4.4-11.3); NEUTROPHILS # (AUTO) 15.4 (2.1-6.9); NEUTROPHILS % 81.1 % (38.7-80.0); PLATELET COUNT 320 x10e3/uL (140-360); RED BLOOD COUNT 2.52 x10e6/uL (4.3-5.7); RED CELL DISTRIBUTION WIDTH 14.6 % (11.7-14.4)
[2021-07-24 06:55] LABS: ALBUMIN 2.9 g/dL (3.5-5.0); ALBUMIN/GLOBULIN RATIO 0.7 (0.8-2.0); ANION GAP 20.5 mmol/L (8-16); CALCIUM 8.7 mg/dL (8.4-10.2); CREATININE, SERUM 5.41 mg/dL (0.72-1.25); POTASSIUM 4.5 mmol/L (3.5-5.1)
[2021-07-24] MEDS: INSULIN LISPRO 100 UNIT/1 ML 3ML VIAL SQ SCH ×4 (07:30→19:53)
[2021-07-24] MEDS: MEROPENEM 500 MG in SODIUM CHLORIDE 0.9% 50ML 50 ML IV SCH ×2 (09:47→21:58)
[2021-07-24] MEDS: SERTRALINE HCL 50 MG TAB PO SCH (09:47)
[2021-07-24] MEDS: PANTOPRAZOLE SOD 40 MG TABEC PO SCH (09:47)
[2021-07-24] MEDS: TAMSULOSIN HCL 0.4 MG CAP PO SCH (09:47)
[2021-07-24] MEDS: ASPIRIN 81 MG CHEW TAB PO SCH (09:47)
[2021-07-25] VITALS (8 sets, daily range): BP systolic 96–133; BP diastolic 31–55
[2021-07-25] MEDS: IPRATROPIUM/ALBUTEROL SULFATE 4 GM INH INH SCH ×4 (00:10→22:48)
[2021-07-25] MEDS: HYDROCODONE/APAP 7.5MG-325MG 1 EA TAB PO PRN ×4 (04:33→21:45)
[2021-07-25] MEDS: HEPARIN SOD (PORCINE) 5,000 UNIT/ML VIAL SC SCH ×3 (05:17→21:44)
[2021-07-25] MEDS ORDERED: SODIUM CHLORIDE 0.9% 250ML 250 ML IV ONE (07:00)
[2021-07-25] MEDS: INSULIN LISPRO 100 UNIT/1 ML 3ML VIAL SQ SCH ×4 (07:30→20:10)
[2021-07-25] MEDS: MEROPENEM 500 MG in SODIUM CHLORIDE 0.9% 50ML 50 ML IV SCH ×2 (08:06→20:11)
[2021-07-25] MEDS: TAMSULOSIN HCL 0.4 MG CAP PO SCH (08:06)
[2021-07-25] MEDS: PANTOPRAZOLE SOD 40 MG TABEC PO SCH (08:06)
[2021-07-25] MEDS: ASPIRIN 81 MG CHEW TAB PO SCH (08:06)
[2021-07-25] MEDS: SERTRALINE HCL 50 MG TAB PO SCH (08:06)
[2021-07-25 08:48] LABS: BASOPHILS # (AUTO) 0.1 (0.0-0.1); BASOPHILS % 0.3 % (0.0-1.0); EOSINOPHILS # (AUTO) 0.1 (0.0-0.4); EOSINOPHILS % 0.7 % (0.0-6.0); HEMOGLOBIN 9.3 g/dL (14.0-18.0); LYMPHOCYTES # (AUTO) 1.8 (1.0-3.2); LYMPHOCYTES % 10.1 % (18.0-39.1); MEAN CORPUSCULAR HEMOGLOBIN 28.5 pg (28-32); MEAN CORPUSCULAR VOLUME 95.1 fL (81-99); MONOCYTES # (AUTO) 1.2 (0.2-0.8); MONOCYTES % 6.8 % (4.4-11.3); NEUTROPHILS # (AUTO) 14.1 (2.1-6.9); NEUTROPHILS % 80.5 % (38.7-80.0); PLATELET COUNT 298 x10e3/uL (140-360); RED BLOOD COUNT 3.26 x10e6/uL (4.3-5.7); RED CELL DISTRIBUTION WIDTH 14.9 % (11.7-14.4)
[2021-07-25 09:08] LABS: ALBUMIN 3.3 g/dL (3.5-5.0); ALBUMIN/GLOBULIN RATIO 0.8 (0.8-2.0); ANION GAP 20.2 mmol/L (8-16); CALCIUM 8.9 mg/dL (8.4-10.2); CREATININE, SERUM 3.92 mg/dL (0.72-1.25); POTASSIUM 4.2 mmol/L (3.5-5.1)
[2021-07-26] VITALS (8 sets, daily range): BP systolic 109–131; BP diastolic 32–69
[2021-07-26] MEDS: IPRATROPIUM/ALBUTEROL SULFATE 4 GM INH INH SCH ×5 (01:07→21:06)
[2021-07-26] MEDS: HEPARIN SOD (PORCINE) 5,000 UNIT/ML VIAL SC SCH ×3 (05:32→21:07)
[2021-07-26] MEDS: INSULIN LISPRO 100 UNIT/1 ML 3ML VIAL SQ SCH ×4 (07:30→21:07)
[2021-07-26] MEDS: PANTOPRAZOLE SOD 40 MG TABEC PO SCH (08:28)
[2021-07-26] MEDS: MEROPENEM 500 MG in SODIUM CHLORIDE 0.9% 50ML 50 ML IV SCH ×2 (08:28→21:06)
[2021-07-26] MEDS: SERTRALINE HCL 50 MG TAB PO SCH (08:29)
[2021-07-26] MEDS: ASPIRIN 81 MG CHEW TAB PO SCH (08:29)
[2021-07-26] MEDS: HYDROCODONE/APAP 7.5MG-325MG 1 EA TAB PO PRN ×3 (08:29→21:06)
[2021-07-26] MEDS: TAMSULOSIN HCL 0.4 MG CAP PO SCH (08:29)
[2021-07-27] VITALS (7 sets, daily range): BP systolic 105–131; BP diastolic 36–74
[2021-07-27] MEDS: IPRATROPIUM/ALBUTEROL SULFATE 4 GM INH INH SCH ×4 (02:05→19:30)
[2021-07-27 05:35] LABS: BASOPHILS % 0.3 % (0.0-1.0); EOSINOPHILS # (AUTO) 0.2 (0.0-0.4); EOSINOPHILS % 1.9 % (0.0-6.0); HEMATOCRIT 28.7 % (38.2-49.6); HEMOGLOBIN 8.8 g/dL (14.0-18.0); LYMPHOCYTES # (AUTO) 0.9 (1.0-3.2); MEAN CORPUSCULAR HEMOGLOBIN 28.3 pg (28-32); MEAN CORPUSCULAR HGB CONC 30.7 g/dL (31-35); MEAN CORPUSCULAR VOLUME 92.3 fL (81-99); MONOCYTES % 8.4 % (4.4-11.3); NEUTROPHILS # (AUTO) 9.3 (2.1-6.9); NEUTROPHILS % 80.4 % (38.7-80.0); PLATELET COUNT 272 x10e3/uL (140-360); RED BLOOD COUNT 3.11 x10e6/uL (4.3-5.7); RED CELL DISTRIBUTION WIDTH 14.7 % (11.7-14.4)
[2021-07-27 05:50] LABS: ANION GAP 23.2 mmol/L (8-16); CALCIUM 9.2 mg/dL (8.4-10.2); POTASSIUM 4.2 mmol/L (3.5-5.1)
[2021-07-27] MEDS: HEPARIN SOD (PORCINE) 5,000 UNIT/ML VIAL SC SCH ×3 (05:54→21:10)
[2021-07-27 06:09] LABS: ALBUMIN 3.1 g/dL (3.5-5.0); ALBUMIN/GLOBULIN RATIO 0.7 (0.8-2.0); CREATININE, SERUM 6.23 mg/dL (0.72-1.25)
[2021-07-27] MEDS: INSULIN LISPRO 100 UNIT/1 ML 3ML VIAL SQ SCH ×4 (07:30→21:09)
[2021-07-27] MEDS: HYDROCODONE/APAP 7.5MG-325MG 1 EA TAB PO PRN ×2 (10:45→15:09)
[2021-07-27] MEDS: MEROPENEM 500 MG in SODIUM CHLORIDE 0.9% 50ML 50 ML IV SCH ×2 (14:30→21:08)
[2021-07-27] MEDS: TAMSULOSIN HCL 0.4 MG CAP PO SCH (14:30)
[2021-07-27] MEDS: ASPIRIN 81 MG CHEW TAB PO SCH (14:30)
[2021-07-27] MEDS: PANTOPRAZOLE SOD 40 MG TABEC PO SCH (14:30)
[2021-07-27] MEDS: SERTRALINE HCL 50 MG TAB PO SCH (14:30)
[2021-07-28] VITALS (10 sets, daily range): BP systolic 104–142; BP diastolic 40–62
[2021-07-28] MEDS: IPRATROPIUM/ALBUTEROL SULFATE 4 GM INH INH SCH ×4 (01:12→19:15)
[2021-07-28] MEDS: HEPARIN SOD (PORCINE) 5,000 UNIT/ML VIAL SC SCH ×3 (05:49→20:58)
[2021-07-28] MEDS: ASPIRIN 81 MG CHEW TAB PO SCH (09:00)
[2021-07-28] MEDS: SERTRALINE HCL 50 MG TAB PO SCH (09:00)
[2021-07-28] MEDS: TAMSULOSIN HCL 0.4 MG CAP PO SCH (09:00)
[2021-07-28] MEDS: MEROPENEM 500 MG in SODIUM CHLORIDE 0.9% 50ML 50 ML IV SCH ×2 (09:00→09:01)
[2021-07-28] MEDS: PANTOPRAZOLE SOD 40 MG TABEC PO SCH (09:00)
[2021-07-28] MEDS: INSULIN LISPRO 100 UNIT/1 ML 3ML VIAL SQ SCH ×4 (09:22→20:59)
[2021-07-29] VITALS (7 sets, daily range): BP systolic 93–138; BP diastolic 41–75
[2021-07-29] MEDS: IPRATROPIUM/ALBUTEROL SULFATE 4 GM INH INH SCH ×4 (00:19→19:09)
[2021-07-29] MEDS: HEPARIN SOD (PORCINE) 5,000 UNIT/ML VIAL SC SCH ×3 (05:56→22:44)
[2021-07-29] MEDS: INSULIN LISPRO 100 UNIT/1 ML 3ML VIAL SQ SCH ×4 (07:30→20:54)
[2021-07-29] MEDS: PANTOPRAZOLE SOD 40 MG TABEC PO SCH (08:30)
[2021-07-29] MEDS: MEROPENEM 500 MG in SODIUM CHLORIDE 0.9% 50ML 50 ML IV SCH ×2 (08:30→21:00)
[2021-07-29] MEDS: TAMSULOSIN HCL 0.4 MG CAP PO SCH (09:14)
[2021-07-29] MEDS: ASPIRIN 81 MG CHEW TAB PO SCH (09:14)
[2021-07-29] MEDS: SERTRALINE HCL 50 MG TAB PO SCH (09:14)
[2021-07-29 09:28] LABS: BASOPHILS # (AUTO) 0.1 (0.0-0.1); BASOPHILS % 0.5 % (0.0-1.0); EOSINOPHILS # (AUTO) 0.2 (0.0-0.4); EOSINOPHILS % 1.6 % (0.0-6.0); HEMATOCRIT 29.8 % (38.2-49.6); HEMOGLOBIN 9.2 g/dL (14.0-18.0); LYMPHOCYTES # (AUTO) 1.3 (1.0-3.2); MEAN CORPUSCULAR HEMOGLOBIN 28.8 pg (28-32); MEAN CORPUSCULAR HGB CONC 30.9 g/dL (31-35); MEAN CORPUSCULAR VOLUME 93.1 fL (81-99); MONOCYTES # (AUTO) 0.7 (0.2-0.8); MONOCYTES % 6.6 % (4.4-11.3); NEUTROPHILS # (AUTO) 7.6 (2.1-6.9); NEUTROPHILS % 77.5 % (38.7-80.0); PLATELET COUNT 212 x10e3/uL (140-360); RED CELL DISTRIBUTION WIDTH 14.7 % (11.7-14.4)
[2021-07-29 09:54] LABS: ALBUMIN 3.1 g/dL (3.5-5.0); ALBUMIN/GLOBULIN RATIO 0.7 (0.8-2.0); ANION GAP 20.5 mmol/L (8-16); CALCIUM 9.4 mg/dL (8.4-10.2); CREATININE, SERUM 5.75 mg/dL (0.72-1.25); POTASSIUM 4.5 mmol/L (3.5-5.1)
[2021-07-29] MEDS ORDERED: HEPARIN SOD (PORCINE) 1000 UNIT/ML SDV IV PRN (13:15)
[2021-07-29] MEDS ORDERED: ALBUMIN 25% 12.5GM 0.25 GM/ML BTL IV PRN (13:15)
[2021-07-30] VITALS (8 sets, daily range): BP systolic 111–139; BP diastolic 37–86
[2021-07-30] MEDS: IPRATROPIUM/ALBUTEROL SULFATE 4 GM INH INH SCH ×4 (00:19→19:54)
[2021-07-30] MEDS: HEPARIN SOD (PORCINE) 5,000 UNIT/ML VIAL SC SCH ×3 (06:13→21:12)
[2021-07-30] MEDS: ACETAMINOPHEN 325 MG TAB PO PRN ×2 (06:25→20:58)
[2021-07-30] MEDS: INSULIN LISPRO 100 UNIT/1 ML 3ML VIAL SQ SCH ×4 (08:30→21:00)
[2021-07-30] MEDS: SERTRALINE HCL 50 MG TAB PO SCH (10:55)
[2021-07-30] MEDS: TAMSULOSIN HCL 0.4 MG CAP PO SCH (10:55)
[2021-07-30] MEDS: ASPIRIN 81 MG CHEW TAB PO SCH (10:55)
[2021-07-30] MEDS: MEROPENEM 500 MG in SODIUM CHLORIDE 0.9% 50ML 50 ML IV SCH ×2 (10:55→20:57)
[2021-07-30] MEDS: PANTOPRAZOLE SOD 40 MG TABEC PO SCH (10:55)
[2021-07-30] MEDS: MELATONIN 5 MG TABLET PO SCH (20:57)
[2021-07-31 00:03] VITALS: BP 118/47
[2021-07-31] MEDS: IPRATROPIUM/ALBUTEROL SULFATE 4 GM INH INH SCH ×4 (02:08→20:02)
[2021-07-31 04:06] VITALS: BP 127/53
[2021-07-31] MEDS: HEPARIN SOD (PORCINE) 5,000 UNIT/ML VIAL SC SCH ×3 (06:18→22:35)
[2021-07-31] MEDS: INSULIN LISPRO 100 UNIT/1 ML 3ML VIAL SQ SCH ×5 (07:30→21:00)
[2021-07-31 08:49] VITALS: BP 133/53
[2021-07-31 09:18] LABS: BASOPHILS % 0.5 % (0.0-1.0); EOSINOPHILS # (AUTO) 0.2 (0.0-0.4); EOSINOPHILS % 2.9 % (0.0-6.0); HEMATOCRIT 29.9 % (38.2-49.6); LYMPHOCYTES # (AUTO) 1.2 (1.0-3.2); LYMPHOCYTES % 13.7 % (18.0-39.1); MEAN CORPUSCULAR HEMOGLOBIN 28.2 pg (28-32); MEAN CORPUSCULAR HGB CONC 30.1 g/dL (31-35); MEAN CORPUSCULAR VOLUME 93.7 fL (81-99); MONOCYTES # (AUTO) 0.6 (0.2-0.8); NEUTROPHILS # (AUTO) 6.3 (2.1-6.9); NEUTROPHILS % 75.2 % (38.7-80.0); PLATELET COUNT 170 x10e3/uL (140-360); RED BLOOD COUNT 3.19 x10e6/uL (4.3-5.7); RED CELL DISTRIBUTION WIDTH 14.5 % (11.7-14.4)
[2021-07-31 09:45] LABS: ALBUMIN 3.4 g/dL (3.5-5.0); ALBUMIN/GLOBULIN RATIO 0.9 (0.8-2.0); CALCIUM 9.3 mg/dL (8.4-10.2); CREATININE, SERUM 5.27 mg/dL (0.72-1.25)
[2021-07-31] MEDS: ASPIRIN 81 MG CHEW TAB PO SCH (09:49)
[2021-07-31] MEDS: PANTOPRAZOLE SOD 40 MG TABEC PO SCH (09:49)
[2021-07-31] MEDS: TAMSULOSIN HCL 0.4 MG CAP PO SCH (09:49)
[2021-07-31] MEDS: MEROPENEM 500 MG in SODIUM CHLORIDE 0.9% 50ML 50 ML IV SCH ×2 (09:49→20:00)
[2021-07-31] MEDS: SERTRALINE HCL 50 MG TAB PO SCH (09:49)
[2021-07-31 20:38] VITALS: BP 126/48
[2021-07-31 21:45] VITALS: BP 126/48
[2021-07-31] MEDS: MELATONIN 5 MG TABLET PO SCH (22:08)
[2021-08-01] MEDS ORDERED: BALSAM PERU/CASTOR OIL 60 GM OINT...G. TP SCH (09:00)
== END 2021-07-31 22:34 | disposition home health service (06) | DRG 871 ==
LOC: ER 11:14 → ERHOLD 12:23 → IMCU 16:36 → MED/SURG2 07-16 00:35 → IMCU 07-19 21:16 → MED/SURG3 07-21 22:03 → MED/SURG2 07-25 20:10
PROVIDERS: ADMIT Internal Medicine; ATTEND Internal Medicine
PROC: 3E0333Z Introduction of Anti-inflammatory into Peripheral Vein, Percutaneous Approach (ICD-10-PCS; 2021-07-11)
PROC: 5A09357 Assistance with Respiratory Ventilation, Less than 24 Consecutive Hours, Continuous Positive Airway Pressure (ICD-10-PCS; 2021-07-12)
PROC: 5A1D70Z Performance of Urinary Filtration, Intermittent, Less than 6 Hours Per Day (ICD-10-PCS; principal; 2021-07-13)
PROC: 02HV33Z Insertion of Infusion Device into Superior Vena Cava, Percutaneous Approach (ICD-10-PCS; 2021-07-13)
PROC: B548ZZA Ultrasonography of Superior Vena Cava, Guidance (ICD-10-PCS; 2021-07-13)
PROC: 0F9430Z Drainage of Gallbladder with Drainage Device, Percutaneous Approach (ICD-10-PCS; 2021-07-20)
PROC: 0JH63XZ Insertion of Tunneled Vascular Access Device into Chest Subcutaneous Tissue and Fascia, Percutaneous Approach (ICD-10-PCS; 2021-07-23)
PROC: 02HV33Z Insertion of Infusion Device into Superior Vena Cava, Percutaneous Approach (ICD-10-PCS; 2021-07-23)
PROC: 30233N1 Transfusion of Nonautologous Red Blood Cells into Peripheral Vein, Percutaneous Approach (ICD-10-PCS; 2021-07-24)
DX: A41.89 Other specified sepsis (principal); U07.1 COVID-19; J12.82 Pneumonia due to coronavirus disease 2019; N18.6 End stage renal disease; N17.0 Acute kidney failure with tubular necrosis; J96.22 Acute and chronic respiratory failure with hypercapnia; J96.21 Acute and chronic respiratory failure with hypoxia; K81.0 Acute cholecystitis; Z68.43 Body mass index [BMI] 50.0-59.9, adult; E66.2 Morbid (severe) obesity with alveolar hypoventilation; E87.1 Hypo-osmolality and hyponatremia; N39.0 Urinary tract infection, site not specified; E66.01 Morbid (severe) obesity due to excess calories; R33.9 Retention of urine, unspecified; E87.5 Hyperkalemia; Z88.8 Allergy status to other drugs, medicaments and biological substances; Z99.81 Dependence on supplemental oxygen; Z87.891 Personal history of nicotine dependence; Z83.3 Family history of diabetes mellitus; E11.22 Type 2 diabetes mellitus with diabetic chronic kidney disease; Z74.01 Bed confinement status; I69.344 Monoplegia of lower limb following cerebral infarction affecting left non-dominant side; N40.1 Benign prostatic hyperplasia with lower urinary tract symptoms; R33.8 Other retention of urine; K72.90 Hepatic failure, unspecified without coma; E27.8 Other specified disorders of adrenal gland; B96.5 Pseudomonas (aeruginosa) (mallei) (pseudomallei) as the cause of diseases classified elsewhere; F32.A Depression, unspecified; D63.8 Anemia in other chronic diseases classified elsewhere
CPT/HCPCS: 36415; 36556; 36558; 36600; 47490; 71045; 74176; 74470; 76604; 76700; 76705; 76770; 76937; 76942; 77001; 80048; 80053; 80076; 81001; 81050; 82248; 82530; 82550; 82553; 82805; 82948; 83036; 83540; 83690; 83835; 84156; 84466; 84484; 84585; 85025; 85610; 86705; 86706; 86850; 86900; 86920; 87040; 87086; 87186; 87340; 90962; 93005; 94660; 94664; 94799; 96360; 96361; 97139; 99152; 99153; 99251; 99284; C1729; C1752; C1769; C1892; J0456; J0610; J0692; J0696; J1100; J1644; J1650; J1817; J1940; J2001; J2150; J2185; J2250; J2270; J2543; J3010; J7030; J7050; J7799; P9016; U0002

== ENCOUNTER 2021-11-12 07:53 | Emergency (ER) | payer OTHER, MEDICARE ==
[~2021-11-12] VITALS: Ht 177.8 cm; Wt 165.1 kg
[~2021-11-12 07:53] MED LIST: ASPIRIN81 MG PO; FLOMAX0.4 MG PO; FUROSEMIDE40 MG PO; HUMULIN 70100 UNIT/1 SC; HYDRALAZINE HCL25 MG PO; LOSARTAN POTAS100 MG PO; METFORMIN HCL500 MG PO; PANTOPRAZOLE SO40 MG PO; SIMVASTATIN20 MG PO; SPIRONOLACTONE25 MG PO
[2021-11-12 09:52] VITALS: BP 149/68
== END 2021-11-12 09:54 | disposition home or self-care (01) ==
LOC: ER 08:20
DX: Z48.01 Encounter for change or removal of surgical wound dressing (principal)
CPT/HCPCS: 99282